=== PATIENT | female | born 1975 | race African-American/Black ===

== ENCOUNTER 2020-09-19 19:44 | Emergency (ER) | payer SELFPAY ==
[~2020-09-19] VITALS: Ht 160 cm; Wt 72.6 kg
[2020-09-19] MEDS ORDERED: IBUPROFEN 600 MG TAB PO STA (20:38)
[2020-09-19] MEDS ORDERED: HYDROCODONE/APAP 5MG-325MG TAB PO ONE (20:45)
[2020-09-19] MEDS ORDERED: ACETAMINOPHEN 325 MG TAB ONE (20:59)
[2020-09-19] MEDS ORDERED: IBUPROFEN 200 MG TAB ONE (20:59)
[2020-09-19] MEDS ORDERED: ACETAMINOPHEN 325 MG TAB PO ONE (22:00)
[2020-09-19 22:01] VITALS: BP 137/82
== END 2020-09-19 22:03 | disposition home or self-care (01) ==
LOC: FSED 20:38
DX: J20.9 Acute bronchitis, unspecified (principal); J02.9 Acute pharyngitis, unspecified; R05 Cough; F17.210 Nicotine dependence, cigarettes, uncomplicated
CPT/HCPCS: 83518; 87400; 99283